=== PATIENT | female | born 1990 | race Two or more races ===

== ENCOUNTER 2025-02-21 15:16 | Emergency (ER) | payer OTHER ==
[~2025-02-21] VITALS: Ht 162.6 cm; Wt 102.0 kg
[2025-02-21 16:01] LABS: Hematocrit 38.7 % (36.0-46.0); Hemoglobin 12.4 g/dL (12.2-16.2); Mean Corpuscular Hemoglobin 27.3 pg (28.0-32.0); Mean Corpuscular Volume 84.9 fL (80.0-100.0); Nucleated Red Blood Cells % 0.0 %
[2025-02-21] MEDS: hydrALAZINE HCL 20 MG/ML VL IV ONE (16:12)
[2025-02-21] MEDS: ONDANSETRON HCL 4 MG/2 ML VIAL IV ONE (16:12)
[2025-02-21 16:19] LABS: Alanine Aminotransferase 17 U/L (7-40); Albumin 4.0 g/dL (3.2-4.8); Alkaline Phosphatase 75 U/L (46-116); Anion Gap 7 (5-15); BUN/Creatinine Ratio 12.7 (10.0-20.0); Blood Urea Nitrogen 13 mg/dL (9-23); Calcium 9.1 mg/dL (8.7-10.4); Carbon Dioxide 27 mmol/L (20-31); Chloride 106 mmol/L (98-107); Potassium 4.2 mmol/L (3.5-5.1); Sodium 140 mmol/L (136-145); Total Protein 8.1 g/dL (5.7-8.2)
[2025-02-21 16:34] LABS: Bilirubin, Total 0.3 mg/dL (0.2-1.0); Glucose 121 mg/dL (74-106)
[2025-02-21] MEDS: SODIUM CHLORIDE 0.9% 1,000 ML IV ONE (17:19)
[2025-02-21 19:14] LABS: Urine Protein, UAD 2+ (Negative)
[2025-02-21 19:23] LABS: Amphetamine Screen, Urine Neg (NEGATIVE); Barbiturate Scree,Urine Neg (NEGATIVE); Benzodiazephine Screen, Urine Neg (NEGATIVE); Cannabinoid Screen, Urine Pos (NEGATIVE); Cocaine Screen, Urine Neg (NEGATIVE); Opiate Scree,Urine Neg (NEGATIVE); Phencyclidine Screen, Urine Neg (NEGATIVE)
[2025-02-21 19:35] LABS: COVID19 ANTIGEN SOFIA FIA NEGATIVE (NEGATIVE)
[2025-02-21] MEDS: PROCHLORPERAZINE EDISYLATE 5 MG/ML 2ML VIAL IV ONE (19:52)
[2025-02-21] MEDS: IOHEXOL 350 MG/ML 100ML IJ ONE (19:52)
--- NOTE | 2025-02-21 20:00 | DVH ---
CHEST RADIOGRAPH Indication: weak Technique: Single frontal view of the chest was obtained Comparison: None FINDINGS: Lines and Tubes: None Lungs: No focal consolidation. Pleura: No effusion. No pneumothorax. Cardiomediastinal contours: Unremarkable Bones: No acute osseous abnormality. IMPRESSION: 1. No acute cardiopulmonary disease.
--- NOTE | 2025-02-21 20:11 | DVH ---
COMPUTERIZED TOMOGRAPHIC ANGIOGRAPHY HEAD AND NECK WITH CONTRAST REASON FOR EXAM: post headache n/v COMPARISON: None TECHNIQUE: Spiral scans were acquired from the aortic arch through the [place] of [place] during the bev dennis intravenous administration of contrast material. Multiplanar maximum intensity projection (MIP) images were provided. 3-D reformatted and were generated on an independent workstation. Noncontrast h ead CT was also performed. Radiation optimization: All CT scans at this facility use at least one of these dose optimization mina hniques: Automated exposure control mA and/or kV adjustment per patient size (includes targeted exams where dose is matched to clinical indication) or iterative reconstruction. CONTRAST ADMINISTERED: 80 mL omnipaque 350 intravenously. RADIATION DOSE: CTDI: 28 mGy DLP: 1346 mGy-cm FINDINGS: [place]ong[place]-white differentiation is grossly maintained and there is no CT evidence of acute isch emic infarcts. There is no hydrocephalus. There is no mass effect or midline shift. The basal ciste rns are maintained. There is no intracranial hyperdensity to suggest acute intracranial hemorrhage. T he intracranial contents are grossly unremarkable. Of the mastoid air cells and paranasal sinuses are grossly clear. There is 4 vessel takeoff from the aortic arch. Evaluation of the common carotid nilo anibal and other lower neck structures is degraded by motion artifact. There is no appreciable soft or calcified plaque in either cervical carotid artery. There is no evidence of carotid dissection. There is supply of the left INDIVIDUAL PENSION ADVISER. There is no abrupt intracranial arterial cutoff. The right vertebr al artery is dominant. There is no evidence of vertebral artery stenosis or dissection. The dural justino ous sinuses are patent. No pathologic lymphadenopathy is identified in the neck. The visualized lung apices are within normal limits. No acute osseous abnormality is identified. IMPRESSION: No acute intracranial abnormality. No abrupt intracranial arterial cutoff. No evidence of common carotid, internal carotid, or vertebral artery stenosis or dissection. Measurement of carotid stenosis is based on velocity parameters that correlate the residual internal carotid diameter with that of the more distal vessel in accordance with the [place] Symptom[place] Carotid Endarterectomy Trial (NASCET).
[2025-02-21] MEDS: KETOROLAC TROMETH 30 MG/ML 1ML VIAL IV ONE (22:16)
[2025-02-21] MEDS: diphenhydrAMINE HCL 50 MG/1 ML VL IV ONE (22:16)
[2025-02-21] MEDS: MAGNESIUM SULFATE 1GM/100ML 100 ML IV ONE (22:17)
[2025-02-21 23:24] VITALS: BP 146/78; PULSE 100; RESP 16; TEMP 98.1; O2SAT 98
--- NOTE | 2025-02-22 11:18 | ED.PDOC ---
HPI (NEURO) HPI Comments HPI: This is a 34 year old female presenting to the ED with chief complaint of headache. Patient reports that she has been experiencing an occipital pressure headache since 12am with associated chills, nausea, and vomiting for the past 2 hours. Patient relays that she has never experienced a headache like this before. Patient states that she last took Tylenol about 3 hours ago with no relief. Patient denies any abdominal pain, dizziness, blurred vision, chest pain, SOB, or syncope. Initial Vitals BP: 164/91 HR: 84 RR: 18 O2: 98% Temp: 97.8F Past Medical History: DM, CA, HTN Past Surgical History: Cardiac Stents, Social History: Denies ETOH, smoking, or drug use. Medications: Reviewed Allergies: NKDA Trevizo: REYES, n/v/weak/chills. HPI: Poor Historian. REVIEW OF SYSTEMS: CONSTITUTIONAL: Denies acute: fever, diaphoresis, , HEAD: Denies acute: , photophobia Eyes: Denies acute: Double vision, vision loss, eye pain, eye discharge. EARS: Denies acute: tinnitus, hearing loss, ear discharge, ear pain, THROAT: Denies acute: sore throat, swelling, difficulty swallowing , pain with swallowing, change in voice. NECK: Denies acute: neck pain, neck swelling, stiff neck. HEART: Denies acute : chest pain, palpitations, LUNGS: Denies acute: SOB, wheezing, cough, hemoptysis ABDOMEN: Denies acute: abdominal pain, diarrhea, melena , hematemesis, hematochezia SKIN: Denies acute: rash, redness, lesions, itchiness. EXTREMITIES: Denies acute: calf pain, numbness, tingling, weakness, denies pain in extremity. Denies acute: Low back pain. Neuro: Denies acute: focal neurological deficit, motor or sensory focal neurological deficit, tremors, seizure like activity, confusion, dizziness, change in mental status, loss of bowel or bladder function, cauda equina like symptoms. : Denies acute: dysuria, hematuria, flank pain, increase in urinary frequency. PSYCH: Denies acute: hallucination, suicidal ideation, homicidal ideation. FEMALE: Denies acute: abnormal vaginal bleeding, foul odor, unusual discharge. PHYSICAL EXAM: General: -----. Moderate---acute distress, awake and alert. Head: normocephalic, atraumatic. Neck: supple, trachea is midline, no swelling. Throat: Normal phonation. Eyes:, no erythema, no purulent discharge, no proptosis, no icterus. Heart: regular rate, regular rhythm, no significant murmur appreciated. Lungs: no apparent respiratory distress, Able to speak in full sentences. No wheezing, no rhonchi, no crackles. No stridors Clear to auscultation bilaterally. Abdomen: non tender to palpation, non distended, soft, no guarding, no rebound, + bowel sounds. Neuro: Awake, Alert, oriented to name, self, situation, follows commands GCS=15. Speech is normal. Skin: no petechia, no purpura, no cyanosis, non-pale, not jaundice. Lower extremities: --no - Pitting edema no deformity, no focal swelling, no calf TTP. Makes eye contact. moves all four extremities. Face: no apparent facial droop. Ambulating in the ED independently. PERRLA, EOM-I CN 2-12 are grossly intact, No nystagmus. No nuchal rigidity, Kernig's sign, Brudzinski's sign, no meningeal signs. ED COURSE: DISCLAIMER: This medical document was created using an electronic medical record system with voice recognition software and computerized dictation system. Although this document has been carefully reviewed, there might still be some phonetic and typographical errors. Occasional wrong-word or "sound-alike" substitutions may have occurred due to the inherent limitations of voice recognition software. These areas are purely typographical due to imperfections of the software programs and do not reflect any compromise in the patient's medical care. Please read the chart carefully and recognize, using context, where these substitutions have occurred. Chief Complaint: Headache Time Seen by MD: 15:49 Reviewed Notes: Medications, Allergies Information Source: Patient, Spouse Mode of Arrival: Wheelchair Severity: Moderate Was a procedure done? Was a procedure done?: No Differential Diagnosis (SZ) Seizure: N/A Headache: Other (DDX include Sinusitis, migraine, meningitis, hypertension, intracranial mass/bleed, stroke, radiculopathy, vertebrobasillary insufficiency, cephalgia, pseudotumor cerebri, cerebellar ischemia/infarct, carotid stenosis, lacunar infarct, vertebral/carotid artery dissection, hydrocephalus, temporal arteritis, dura venous sinus thrombosis.) X-Ray, Labs, Meds, VS Vital Signs Date Time Temp Pulse Resp B/P (MAP) Pulse Ox O2 Delivery O2 Flow Rate FiO2 02/21/25 23:24 98.1 100 16 146/78 (100) 98 98.1 02/21/25 23:24 100 16 98 Room Air* 0 21 02/21/25 18:55 162/88 (112) 02/21/25 16:34 98.6 89 19 167/89 (115) 97 98.6 02/21/25 16:12 167/89 02/21/25 15:17 97.8 84 18 164/91 98 97.8 Lab Test 02/21/25 19:06 02/21/25 18:42 02/21/25 16:38 02/21/25 15:53 Range/Units Influenza Type A Antigen Negative Negative Influenza Type B Antigen Negative Negative SARS-CoV-2 Antigen (Rapid) Negative NEGATIVE Urine Color Light-yellow Yellow Urine Clarity Clear Clear Urine pH 7.0 5.0-9.0 Urine Specific [place] 1.026 1.001-1.035 Urine Protein 2+ H Negative Urine Ketones 1+ H Negative Urine Blood Negative Negative /uL Urine Nitrite Negative Negative Urine Bilirubin Negative Negative Urine Urobilinogen Normal Negative mg/dL Urine Leukocyte Esterase Negative Negative /uL Urine RBC 6 0 - 4 /hpf Urine Microscopic WBC 4 0-5 /HPF Urine Squamous Epithelial Cells Few <5 /hpf Urine Bacteria Few H None Seen /hpf Urine Glucose 4+ H Normal mg/dL Urine Test Negative Negative Urine Opiates Screen Neg NEGATIVE Urine Fentanyl Screen Neg NEGATIVE Urine Barbiturates Screen Neg NEGATIVE Urine Phencyclidine Screen Neg NEGATIVE Urine Amphetamines Screen Neg NEGATIVE Urine Benzodiazepines Screen Neg NEGATIVE Urine Cocaine Screen Neg NEGATIVE Urine Cannabinoids Screen Pos NEGATIVE Lactic Acid Level 0.9 0.4-2.0 mmol/L White Blood Count 18.0 H 4.4-10.8 10^3/uL Red Blood Count 4.56 4.0-5.20 10^6/uL Hemoglobin 12.4 12.2-16.2 g/dL Hematocrit 38.7 36.0-46.0 % Mean Corpuscular Volume 84.9 80.0-100.0 fL Mean Corpuscular Hemoglobin 27.3 L 28.0-32.0 pg Mean Corpuscular Hemoglobin Concent 32.2 32.0-36.0 g/dL Red Cell Distribution Width 14.2 11.8-14.3 % Platelet Count 350 140-450 10^3/uL Mean Platelet Volume 8.2 6.9-10.8 fL Neutrophils (%) (Auto) 85.6 H 37.0-80.0 % Lymphocytes (%) (Auto) 8.0 L 10.0-50.0 % Monocytes (%) (Auto) 5.2 0.0-12.0 % Eosinophils (%) (Auto) 0.3 0.0-7.0 % Basophils (%) (Auto) 0.9 0.0-2.0 % Neutrophils # (Auto) 15.4 H 1.6-8.6 10 ^3/uL Lymphocytes # (Auto) 1.4 0.4-5.4 10 ^3/uL Monocytes # (Auto) 0.9 0-1.3 10 ^3/uL Eosinophils # (Auto) 0.1 0-0.8 10 ^3/uL Basophils # (Auto) 0.2 0-0.2 10 ^3/uL Nucleated Red Blood Cells 0.0 % Sodium Level 140 136-145 mmol/L Potassium Level 4.2 3.5-5.1 mmol/L Chloride Level 106 98-107 mmol/L Carbon Dioxide Level 27 20-31 mmol/L Anion Gap 7 5-15 Blood Urea Nitrogen 13 9-23 mg/dL Creatinine 1.02 0.550-1.02 mg/dL Glomerular Filtration Rate Calc 73 >90 mL/min BUN/Creatinine Ratio 12.7 10.0-20.0 Serum Glucose 121 H 74-106 mg/dL Calcium Level 9.1 8.7-10.4 mg/dL Total Bilirubin 0.3 0.2-1.0 mg/dL Aspartate Amino Transferase (AST) 18 13-40 U/L Alanine Aminotransferase (ALT) 17 7-40 U/L Alkaline Phosphatase 75 46-116 U/L Total Protein 8.1 5.7-8.2 g/dL Albumin 4.0 3.2-4.8 g/dL Microbiology Date/Time Source Procedure Growth Status 02/21/25 16:46 Blood Blood Culture - Preliminary NO GROWTH AFTER 24 HOURS OF INCUBATION. Resulted 02/21/25 16:38 Blood Blood Culture - Preliminary NO GROWTH AFTER 24 HOURS OF INCUBATION. Resulted Current Medications Medications (Trade) Dose Ordered Sig/Elmer Route Start Time Stop Time Status Last Admin Prochlorperazine Edisylate (Compazine Inj) 5 mg ONCE ONCE IV 02/21/25 19:00 02/21/25 19:01 DC 02/21/25 19:52 Ketorolac Tromethamine (Toradol Injection) 30 mg ONCE ONCE IV 02/21/25 21:45 02/21/25 21:46 DC 02/21/25 22:16 Diphenhydramine HCl (Benadryl Injection) 25 mg ONCE ONCE IV 02/21/25 21:45 02/21/25 21:46 DC 02/21/25 22:16 Magnesium Sulfate/ Dextrose 100 ml @ 100 mls/hr ONCE ONCE IV 02/21/25 21:45 02/21/25 22:44 DC 02/21/25 22:17 Time of 1ST Reevaluation: 16:49 Reevaluation 1ST: Unchanged Time of 2ND Reevaluation: 23:17 Reevaluation 2ND: Resolved Patient Education/Counseling: Diagnosis, Treatment Family Education/Counseling: Diagnosis, Treatment Comments MDM: patient presented with the above HPI.---headache---workup was initiated. patient was found with the above mentioned diagnosis. the following medications were ordered: please refer to order lists of meds and tests obtained by myself Dr. Sears. Patient ED course and VS have been stabilized. Patient has been reassessed in the ED and remained in a stable condition. Pertinent incidental findings were discussed with the patient and/or family. Patient/family voices understanding and is agreeable with plan. Patient has been observed in the ED adequate length of time to insure improvement/stability. Escalation of care considered: Consideration of escalation to observation or admission CT with contrast of the head was obtained which was unremarkable. Patient was given multiple medications and reassessed and his symptoms have completely resolved. There was noted mild leukocytosis without associated fever or other sources of infection. Patient has no meningeal signs. Patient was hypertensive. She was given hydralazine. In the setting of leukocytosis earlier in the workup, patient was given empiric antibiotics Rocephin until the workup is complete. Patient was DISCHARGED home in a stable condition. All the reports of any imaging studies that were ordered by myself were reviewed by myself. Departure 1 Departure Time of Disposition: 23:16 Impression: Primary Impression: Headache Additional Impressions: Nausea and vomiting Leukocytosis Disposition: HOME / SELF CARE / HOMELESS Condition: Stable Additional Instructions: Additional instructions: Please read all instructions provided in this packet carefully. You MUST follow-up with your primary care/family doctor in 1 to 2 days. If you are unable to see your primary care/family doctor, please return to our emergency room for re-assessment and re-evaluation in 1 to 2 days. Return to the emergency room here in our facility or to the nearest ER [facility] if your symptoms change or worsen. CONSULTATIONS: you MUST Follow-up for consultation as soon as possible with: -neurology in 1-2 days. Please call for appointment. You MUST call the consultants office yourself to make an appointment. You may need to arrange that through your insurance and/or your primary/family doctor. If you are unable to see the exchange underwriting consultant in 1 to 2 days, you must return to our emergency room (or any other ER of your choice) for re-assessment and re- evaluation. Adequate fluid hydration. Although you have been discharged from the Emergency Department, this does not mean that you have a "clean bill of health". No definitive diagnosis for your symptoms has been made today. It is possible that you are in the process of developing a serious illness. This is why you must return to the ED without fail if any new or worsening symptoms develop. Avoid marijuana. Below is a copy of your radiological report for follow up: [place] [id number] Ph: [phone] DIAGNOSTIC IMAGING Diagnostic Imaging Report : [id number] Signed PATIENT: YEN TREVIZO ACCT: [id number] UNIT: [id number] : 1990 LOC: ER ROOM / BED: / AGE / SEX: 34 / F ADM STATUS: REG ER SERVICE [id number] ORDERING PHYSICIAN: TONNY SEARS DO PROCEDURE(s): [place] - ANGIO HEAD/Neck REASON: post headache n/v ORDER NUMBER(s): [id number], ACCESSION NUMBER(s): [id number] COMPUTERIZED TOMOGRAPHIC ANGIOGRAPHY HEAD AND NECK WITH CONTRAST REASON FOR EXAM: post headache n/v COMPARISON: None TECHNIQUE: Spiral scans were acquired from the aortic arch through the [place] of [place]iste during the bolus intravenous administration of contrast material. Multiplanar maximum intensity projection (MIP) images were provided. 3-D reformatted and were generated on an independent workstation. Noncontrast head CT was also performed. Radiation optimization: All CT scans at this facility use at least one of these dose optimization techniques: Automated exposure control mA and/or kV adjustment per patient size (includes targeted exams where dose is matched to clinical indication) or iterative reconstruction. CONTRAST ADMINISTERED: 80 mL omnipaque 350 intravenously. RADIATION DOSE: CTDI: 28 mGy DLP: 1346 mGy-cm FINDINGS: [place]-white differentiation is grossly maintained and there is no CT evidence of acute ischemic infarcts. There is no hydrocephalus. There is no mass effect or midline shift. The basal cisterns are maintained. There is no intracranial hyperdensity to suggest acute intracranial hemorrhage. The intracranial contents are grossly unremarkable. Of the mastoid air cells and paranasal sinuses are grossly clear. There is 4 vessel takeoff from the aortic arch. Evaluation of the common carotid arteries and other lower neck structures is degraded by motion artifact. There is no appreciable soft or calcified plaque in either cervical carotid artery. There is no evidence of carotid dissection. There is supply of the left METROPOLITAN EDITOR. There is no abrupt intracranial arterial cutoff. The right vertebral artery is dominant. There is no evidence of vertebral artery stenosis or dissection. The dural venous sinuses are patent. No pathologic lymphadenopathy is identified in the neck. The visualized lung apices are within normal limits. No acute osseous abnormality is identified. IMPRESSION: No acute intracranial abnormality. No abrupt intracranial arterial cutoff. No evidence of common carotid, internal carotid, or vertebral artery stenosis or dissection. Measurement of carotid stenosis is based on velocity parameters that correlate the residual internal carotid diameter with that of the more distal vessel in accordance with the [place] Symptomatic Carotid Endarterectomy Trial (NASCET). ATED BY: LITO GARIBAY MD DICTATED DATE/TIME: 02/21/252007 SIGNED BY: LITO GARIBAY MD SIGNED DATE/TIME: 02/21/252007 CC: Discharged With: Self Critical Care Note Critical Care Time?: No I personally scribed for TONNY SEARS DO ([email or web address]) on 02/21/25 at 15:56. Electronically submitted by Kimo Fung ([email or web address]). TONNY SEARS DO Feb 21, 2025 15:56
== END 2025-02-21 23:41 | disposition home or self-care (01) ==
LOC: ER 15:25
DX: D72.829 Elevated white blood cell count, unspecified (principal); R51.9 Headache, unspecified; R11.2 Nausea with vomiting, unspecified; E11.9 Type 2 diabetes mellitus without complications; I10 Essential (primary) hypertension; I25.2 Old myocardial infarction; Z20.822 Contact with and (suspected) exposure to COVID-19; Z95.5 Presence of coronary angioplasty implant and graft; Z98.890 Other specified postprocedural states; Z79.899 Other long term (current) drug therapy
CPT/HCPCS: 36415; 70496; 70498; 71045; 80053; 80307; 81001; 81025; 83605; 85025; 87040; 87426; 87804; 96365; 96367; 96375; 99285; J0360; J0696; J0780; J1200; J1885; J2405; J3475; J7030; Q9967